=== PATIENT | male | born 1980 | race Two or more races ===

== ENCOUNTER 2021-11-16 12:19 | Emergency (ER) | payer MEDICAID, OTHER ==
[~2021-11-16] VITALS: Ht 170.2 cm; Wt 86.2 kg
[2021-11-16] MEDS ORDERED: TETANUS-DIPTH-ACEL PERTUSSIS 0.5ML SYR Tdap IM ONE (17:30)
[2021-11-16] MEDS ORDERED: IBUP600T28 PO (17:31)
[2021-11-16] MEDS ORDERED: CEPH500C PO (17:31)
[2021-11-16] MEDS ORDERED: LIDOCAINE 1%HCL (LOCAL ANESTH) 10 ML MDV ONE (17:32)
[2021-11-16 18:39] VITALS: BP 135/89
== END 2021-11-16 18:54 | disposition home or self-care (01) ==
LOC: ER 12:19
DX: S61.411A Laceration without foreign body of right hand, initial encounter (principal); Z79.1 Long term (current) use of non-steroidal anti-inflammatories (NSAID); Z79.899 Other long term (current) drug therapy; W26.8XXA Contact with other sharp object(s), not elsewhere classified, initial encounter; Y93.89 Activity, other specified; Y92.89 Other specified places as the place of occurrence of the external cause; Y99.8 Other external cause status
CPT/HCPCS: 12001; 90471; 90715; 99283; J2001